=== PATIENT | male | born 1960 | race Caucasian/White ===

== ENCOUNTER 2018-04-06 15:26 | Emergency (ER) | payer OTHER ==
[2018-04-06] MEDS ORDERED: Lidocaine 1%* 5 ML VIAL INJ ONE (16:42)
[2018-04-06] MEDS ORDERED: HYDROcodone/ACETAMIN 5-325 MG* 1 TAB PO ONE (16:45)
--- NOTE | 2018-04-06 17:32 | UC ---
Skin Complaint HPI - HPI Summary HPI Summary: 58-year-old male comes in to clinic today with a chief complaint laceration to the left hand. Just prior to arrival he was moving some items around at home and went [employer] fell he ended up cutting his hand at the base of the left thumb on the broken shards. He does not think is any foreign body in it settled the pieces were rather large. It bled rather extensively. Eating stop with direct pressure. He will move his thumb but it hurts when he moves the thumb. Denies any numbness. Reports that he is up-to-date on his tetanus. - History of Current Complaint Chief Complaint: UCLaceration Time Seen by Provider: 04/06/18 16:41 Stated Complaint: WRIST LACERATION Pain Intensity: 6 - Allergy/Home Medications Allergies/Adverse Reactions: Allergies Allergy/AdvReac Type Severity Reaction Status Date / Time pregabalin [From Lyrica] Allergy Rash And Verified 04/06/18 15:40 Itching Review of Systems All Other Systems Reviewed And Are Negative: Yes Constitutional: Positive: Negative Skin: Positive: Other - SEE HPI Eyes: Positive: Negative ENT: Positive: Negative Respiratory: Positive: Negative Cardiovascular: Positive: Negative Gastrointestinal: Positive: Negative Motor: Positive: Negative Neurovascular: Positive: Negative Musculoskeletal: Positive: Other: - SEE HPI Neurological: Positive: Negative Psychological: Positive: Negative PMH/Surg Hx/FS Hx/Imm Hx Previously Healthy: Yes Endocrine History: Dyslipidemia Cardiovascular History: Hypertension, Myocardial Infarction Other History Of: Negative For: Anticoagulant Therapy - Surgical History Surgical History: Yes Surgery Procedure, Year, and Place: KIDNEY STONES REMOVED 12/20 AT [facility] [place] - Family History Known Family History: Positive: Non-Contributory - Social History Alcohol Use: None Substance Use Type: None Smoking Status (MU): Former Smoker Type: Cigarettes Length of Time of Smoking/Using Tobacco: 18yrs Have You Smoked in the Last Year: No - Immunization History Most Recent Influenza Vaccination: None Most Recent Tetanus Shot: 2003? Most Recent Pneumonia Vaccination: never Physical Exam Triage Information Reviewed: Yes Appearance: Well-Appearing, Well-Nourished, Pain Distress - MILD Vital Signs: Initial Vital Signs Temp 97.2 F 04/06/18 15:42 Pulse 67 04/06/18 15:42 Resp 18 04/06/18 15:42 BP 105/63 04/06/18 15:42 Pulse Ox 96 04/06/18 15:42 Vital Signs Reviewed: Yes Eye Exam: Normal Eyes: Positive: Conjunctiva Clear Neck exam: Normal Neck: Positive: Supple Respiratory: Positive: No respiratory distress Musculoskeletal: Positive: Strength Intact, ROM Intact - PAIN WITH LEFT THUMB ROM. NO WEAKNESS/NUMBNESS Neurological Exam: Normal Neurological: Positive: Alert, Muscle Tone Normal Psychological Exam: Normal Psychological: Positive: Normal Response To Family, Age Appropriate Behavior Skin: Positive: Other - On the left thenar eminence there is a flap laceration that is 4 cm long. In the wound I do not see any foreign body do not see any tendon. The wound is clean. Laceration Repair - Laceration Repair 1 Description: Irregular Laceration Size After Repair: Length (cm) - 4CM Contamination/FB Removal: NO FB SEEN Modified For Repair: No Type Injection: Local Anesthesia Used: 1.0% Lido Cleansing Completed Via Routine Prep: Yes Closure Material: Sutures Closure Method: Single Layer Suture Of: Skin Suture Type: Prolene - 5-0 PROLENE, TOTAL OF 12 SUTURES Course/Dx - Course Course Of Treatment: Laceration was cleaned I did not see any foreign body. I cleaned it with sterile saline and Shur-Clens. Follow-up is full range of motion although there is pain with full range of motion. I did not see any tendon involvement. Overall the sutures come out in 8-10 days we'll have the patient on Keflex. Patient reports she is up-to-date on his tetanus. For follow-up. He can have his sutures taken otherwise primary care doctor or come here. I also gave him the referral to orthopedics so that if he is having any difficulty with movement of the hand or numbness he can see the hand specialist. - Diagnoses Provider Diagnosis: Laceration of left hand Discharge - Sign-Out/Discharge Documenting (check all that apply): Patient Departure All imaging exams completed and their final reports reviewed: No Studies - Discharge Plan Condition: Stable Disposition: HOME Prescriptions: Cephalexin CAP* [Keflex CAP*] 500 mg PO TID #21 cap HYDROcodone/ACETAMIN 5-325 MG* [[place] 5-325 TAB*] 1 tab PO Q4H PRN #20 tab MDD 6 PRN Reason: Pain Patient Education Materials: Laceration (ED) Referrals: Tejinder Yuen MD [Primary Care Provider] - Additional Instructions: FOLLOW UP WITH YOUR DOCTOR. FOLLOW UP WITH THE ORTHOPEDIC HAND SPECIALIST IF YOU HAVE ANY WEAKNESS, NUMBNESS OR DECREASED RANGE OF MOTION. GET RECHECKED FOR ANY WORSENING OF YOUR CONDITION; PAIN, SIGNS OF INFECTION OR QUESTIONS OR CONCERNS. - Billing Disposition and Condition Condition: STABLE Disposition: Home
[2018-04-06 18:21] VITALS: BP 124/85
== END 2018-04-06 18:05 | disposition home or self-care (01) ==
LOC: UCEAST 15:26
DX: S61.412A Laceration without foreign body of left hand, initial encounter (principal); W25.XXXA Contact with sharp glass, initial encounter; Y93.89 Activity, other specified; Y92.009 Unspecified place in unspecified non-institutional (private) residence as the place of occurrence of the external cause; Z88.8 Allergy status to other drugs, medicaments and biological substances; Z87.891 Personal history of nicotine dependence
CPT/HCPCS: 12002; 99202; G0463

== ENCOUNTER 2018-04-14 13:54 | Emergency (ER) | payer SELFPAY ==
[2018-04-14 15:41] VITALS: BP 124/87
--- NOTE | 2018-04-14 16:02 | UC ---
HPI Wound/Suture Re-check - HPI Summary HPI Summary: 58 y/o male present to the clinic requesting suture removal on his laceration repair on his left hand done here at the clinic on 04/06/2018. Pt reports he cut hand w/ a broken base. Wound has healed well, He finish taking keflex PO yesterday. Pt can move left hand w/o any problems. He denies fever, SOB, chest pain,abdominal pain,N/V/D. - History Of Current Complaint Chief Complaint: UCSkin Stated Complaint: SUTURE REMOVAL Time Seen by Provider: 04/14/18 15:34 Hx Obtained From: Patient Onset/Duration: Sudden Onset, Lasting Weeks - 1 week, Resolved Pain Intensity: 0 Pain Scale Used: 0-10 Numeric Surgery Date: 04/06/18 - Allergies/Home Medications Allergies/Adverse Reactions: Allergies Allergy/AdvReac Type Severity Reaction Status Date / Time pregabalin [From Lyrica] Allergy Rash And Verified 04/14/18 15:41 Itching PMH/Surg Hx/FS Hx/Imm Hx Previously Healthy: Yes Cardiovascular History: Hypertension, Myocardial Infarction Other History Of: Negative For: Anticoagulant Therapy - Surgical History Surgical History: Yes Surgery Procedure, Year, and Place: KIDNEY STONES REMOVED 12/20 AT [facility] - Family History Known Family History: Positive: Cardiac Disease, Non-Contributory - Social History Occupation: Employed Full-time Alcohol Use: None Substance Use Type: None Smoking Status (MU): Former Smoker Type: Cigarettes Length of Time of Smoking/Using Tobacco: 18yrs Have You Smoked in the Last Year: No - Immunization History Most Recent Influenza Vaccination: None Most Recent Tetanus Shot: 2003? Most Recent Pneumonia Vaccination: never Review of Systems All Other Systems Reviewed And Are Negative: Yes Constitutional: Positive: Negative Skin: Positive: Other - laceration wound of left hand hewaling well. Eyes: Positive: Negative Respiratory: Positive: Negative Cardiovascular: Positive: Negative Gastrointestinal: Positive: Negative Genitourinary: Positive: Negative Motor: Positive: Negative Neurovascular: Positive: Negative Musculoskeletal: Positive: Negative Neurological: Positive: Negative Psychological: Positive: Negative Is Patient Immunocompromised?: No Physical Exam - Summary Physical Exam Summary: Vital Signs Reviewed: Yes General: well developed, well nourished female sitting in the examining table w/ o any apparent distress Eye Exam: Normal Eyes: Positive: Conjunctiva Clear - PERRLA, EOMI, fundi grossly normal ENT: Positive: Normal ENT inspection, Hearing grossly normal, Pharynx normal, TMs normal Neck: Positive: Supple, Nontender, No Lymphadenopathy Respiratory: Positive: Chest non-tender, Lungs clear, Normal breath sounds, No respiratory distress Cardiovascular: Positive: RRR, No Murmur, Pulses Normal, Brisk Capillary Refill Abdomen Description: Positive: Nontender, No Organomegaly, Soft. Negative: CVA Tenderness (R), CVA Tenderness (L) Bowel Sounds: Positive: Present Musculoskeletal: Positive: Strength Intact, ROM Intact, No Edema Neurological: Positive: Alert, Muscle Tone Normal Psychological Exam: Normal Skin: Positive:Left hand just below the thenar eminence w/ a wound healing well with crusting and moderate granulation over, non tender to palpation, [address] FROM of left hand and wrist , sensation intact, capillary refill brisk, and pulses WNL. Triage Information Reviewed: Yes Vital Signs: Initial Vital Signs Temp 98.4 F 04/14/18 15:35 Pulse 67 04/14/18 15:35 Resp 18 04/14/18 15:35 BP 124/87 04/14/18 15:35 Pulse Ox 97 04/14/18 15:35 Course/Dx - Course Course Of Treatment: 58 y/o male present to the clinic requesting suture removal on his laceration repair on his left hand done here at the clinic on 04/06/2018. Pt reports he cut hand w/ a broken base. Wound has healed well, He finish taking keflex PO yesterday. Pt can move left hand w/o any problems. He denies fever, SOB, chest pain,abdominal pain,N/V/D. Hx obtained.Wound healing well with crusting and moderate granulation over, non tender to palpation, [address] 11 sutures removed w/o any difficulty. Pt tolerated well procedure. wound cleaned with sterile water and bacitracin applied over and cover with sterile gauze. Pt advised if redness, pain or fever develops to return to the urgent care or f/u with PCP for further treatment. Pt's BP elevated today, advised to decrease salt in diet and monitor BP, and f/u with PCP. Pt understood and agreed with plan of care - Differential Dx - Laceration/Wound Differential Diagnoses: Cellulitis, Healing Wound, Suture Removal - Diagnosis Provider Diagnosis: Encounter for removal of sutures Discharge - Sign-Out/Discharge Documenting (check all that apply): Patient Departure - d/C home All imaging exams completed and their final reports reviewed: No Studies - Discharge Plan Condition: Stable Disposition: HOME Prescriptions: Bacitracin OINTMENT* 1 applic TOPICAL BID #1 tube Patient Education Materials: Acute Wound Care (ED) Referrals: Tejinder Yuen MD [Primary Care Provider] - 1 Week Additional Instructions: 1-Please apply topical antibiotic over the wound. Keep wound clean and dry 2-Take Ibuprofen or Tylenol PO q6-8hrs prn for pain or swelling. 3- If you develop fever or redness around your wrist please return to the Urgent care for further management. - Billing Disposition and Condition Condition: STABLE Disposition: Home
== END 2018-04-14 16:21 | disposition home or self-care (01) ==
LOC: UCEAST 13:54
DX: S61.412D Laceration without foreign body of left hand, subsequent encounter (principal); W26.9XXD Contact with unspecified sharp object(s), subsequent encounter; Z88.8 Allergy status to other drugs, medicaments and biological substances; Z87.891 Personal history of nicotine dependence